=== PATIENT | female | born 1995 | race Caucasian/White ===

== ENCOUNTER 2017-03-02 09:24 | Emergency (ER) | payer OTHER ==
[~2017-03-02] VITALS: Ht 160 cm; Wt 72.6 kg
[2017-03-02 09:39] LABS: URINE BILIRUBIN NEGATIVE (Negative); URINE BLOOD 1+ (Negative); URINE COLOR YELLOW; URINE GLUCOSE-RANDOM* NEGATIVE (Negative); URINE KETONES NEGATIVE (Negative); URINE NITRITE NEGATIVE (Negative); URINE PROTEIN (DIPSTICK) NEGATIVE (Negative); URINE SPECIFIC GRAVITY 1.015 (1.003-1.035)
[2017-03-02 09:48] LABS: BACTERIA 1-9 Few /HPF (None Seen); CASTS None Seen /LPF (None Seen); CRYSTALS None Seen /LPF (None Seen); SQUAMOUS 4-10 Moderate /LPF (0-3); URINE RBC 0-2 Rare /HPF (0-2); URINE WBC None Seen /HPF (0-5)
[2017-03-02 10:20] LABS: ABSOLUTE NEUTROPHILS 5.9 thou/uL (1.4-8.2); BASOPHILS 0.5 % (0.0-2.0); EOSINOPHILS 2.6 % (0.0-3.0); HEMATOCRIT 33.4 % (37.0-47.0); HEMOGLOBIN 11.6 gm/dL (12.0-15.0); LYMPHOCYTES 25.1 % (24.0-44.0); MCH 29.8 pg (26.0-34.0); MCHC 34.7 g/dL (28.0-37.0); MCV 85.7 fL (80.0-100.0); MONOCYTES 5.7 % (1.0-8.0); PLATELET COUNT 199 thou/uL (150-400); POLYS 66.1 % (36.0-66.0); RBC 3.89 mil/uL (4.20-5.00); RDW 15.2 % (10.5-14.5); WBC 8.9 thou/uL (4.0-11.0)
[2017-03-02 10:22] LABS: MANUAL DIFF NO
[2017-03-02 10:29] LABS: CALCIUM 9.4 mg/dL (8.5-10.1); CREATININE 0.5 mg/dL (0.6-1.0); POTASSIUM 3.7 mmol/L (3.5-5.1)
[2017-03-02 10:34] LABS: ALBUMIN 3.9 g/dL (3.4-5.0); DIRECT BILIRUBIN 0.2 mg/dL (<0.1-0.3); TOTAL BILIRUBIN 1.5 mg/dL (<0.1-1.0); TOTAL PROTEIN 7.9 g/dL (6.4-8.2)
[2017-03-02 12:25] VITALS: BP 103/56
[2017-03-02] MEDS ORDERED: ONDANSETRON HCL4 M2 PO (12:26)
[2017-03-05 03:08] LABS: CHLAMYDIA TRACHOMATIS-PCR Negative (Negative); NEISSERIA GONORRHEA-PCR Negative (Negative)
== END 2017-03-02 14:03 | disposition home or self-care (01) ==
LOC: ER 09:24
PROVIDERS: Nurse Practitioner
DX: O20.0 Threatened abortion (principal); Z3A.08 8 weeks gestation of pregnancy; Z88.1 Allergy status to other antibiotic agents

== ENCOUNTER 2017-03-04 10:31 | Emergency (ER) | payer OTHER ==
[~2017-03-04] VITALS: Ht 165.1 cm; Wt 79.4 kg
[~2017-03-04 10:31] MED LIST: ONDANSETRON HCL4 M2 PO
[2017-03-04 12:03] LABS: HEMATOCRIT 36.3 % (37.0-47.0); HEMOGLOBIN 12.1 gm/dL (12.0-15.0); MCH 29.3 pg (26.0-34.0); MCHC 33.4 g/dL (28.0-37.0); MCV 87.7 fL (80.0-100.0); RBC 4.14 mil/uL (4.20-5.00); RDW 15.1 % (10.5-14.5); WBC 10.9 thou/uL (4.0-11.0)
[2017-03-04 12:08] LABS: CALCIUM 9.4 mg/dL (8.5-10.1); CREATININE 0.5 mg/dL (0.6-1.0); POTASSIUM 3.7 mmol/L (3.5-5.1)
[2017-03-04] MEDS ORDERED: IBUPROFEN 800800 M1 PO (14:48)
[2017-03-04] MEDS ORDERED: SENOKOT-S1 TA1 PO (14:48)
[2017-03-04] MEDS ORDERED: NORCO 5-325 TA1 EACH PO (14:48)
[2017-03-04 15:30] VITALS: BP 113/64
[2017-03-05 21:08] LABS: CHLAMYDIA TRACHOMATIS-PCR Negative (Negative); NEISSERIA GONORRHEA-PCR Negative (Negative)
== END 2017-03-04 15:33 | disposition home or self-care (01) ==
LOC: ER 10:31
PROVIDERS: Emergency Medicine
DX: O03.4 Incomplete spontaneous abortion without complication (principal); Z3A.01 Less than 8 weeks gestation of pregnancy; Z88.1 Allergy status to other antibiotic agents